=== PATIENT | male | born 1975 | race Hispanic/Latino ===

== ENCOUNTER 2023-09-11 12:07 | Emergency (ER) | payer BC ==
[~2023-09-11] VITALS: Ht 172.7 cm; Wt 111.1 kg
[2023-09-11 12:29] VITALS: BP 143/95; PULSE 120; RESP 18
[2023-09-11] MEDS ORDERED: ACETAMINOPHEN 500 MG TABLET ONE (12:37)
[2023-09-11] MEDS ORDERED: IBUPROFEN 600 MG TABLET ONE (12:38)
[2023-09-11] MEDS ORDERED: IBUPROFEN 600 MG TABLET PO ONE (13:00)
[2023-09-11] MEDS ORDERED: ACETAMINOPHEN 500 MG TABLET PO ONE (13:00)
[2023-09-11 13:10] LABS: RAPID GROUP A STREP negative (NEGATIVE)
[2023-09-11 13:12] LABS: SARS-CoV-2, RNA, NAAT NEGATIVE SARS CoV-2 (NEGATIVE)
[2023-09-11 13:20] LABS: INFLUENZA TYPE B Negative For Type B (NEGATIVE)
[2023-09-11 13:54] VITALS: TEMP 99.5
[2023-09-11 14:19] LABS: INFLUENZA TYPE A Positive For Type A (NEGATIVE)
[2023-09-11] MEDS ORDERED: ONDA4TAB10 PO (14:41)
[2023-09-11] MEDS ORDERED: OSEL75 PO (14:41)
[2023-09-11] MEDS ORDERED: OSELTAMIVIR PHOSPHATE 75 MG CAP PO ONE (15:00)
== END 2023-09-11 14:45 | disposition home or self-care (01) ==
LOC: EDH 12:07
DX: J11.1 Influenza due to unidentified influenza virus with other respiratory manifestations (principal); R50.9 Fever, unspecified; E11.9 Type 2 diabetes mellitus without complications; E78.00 Pure hypercholesterolemia, unspecified; I10 Essential (primary) hypertension; Z20.822 Contact with and (suspected) exposure to COVID-19
CPT/HCPCS: 99283; 87635; 87880; 87804 ×2; C9803